=== PATIENT | male | born 1960 | race Hispanic/Latino ===

== ENCOUNTER → 2018-06-05 | Day surgery (SDC) | payer OTHER ==
--- NOTE | 2018-06-05 17:34 | Operative Report ---
Operative/Inv Procedure Report Surgery Date: 06/05/18 Name of Procedure: Endoscopic sinus surgery with 1. Middle meatal antrotomy with polypoid tissue removal, bilateral 2. Partial ethmoidectomy, bilateral 3. Nasoseptal reconstruction 4. Inferior turbinate outfracture and submucous resection, bilateral 5. Excision of deanna bullosa middle turbinate, left 6. Middle turbinate reduction, right Pre-Operative Diagnosis: 1. Chronic sinusitis, ethmoid and maxillary 2. Deviated nasal septum 3. Deanna bullosa middle turbinate, left 4. Inferior turbinate hypertrophy, bilateral 5. Middle turbinate hypertrophy, right Post-Operative Diagnosis: Same Estimated Blood Loss: less than 50ml Surgeon/Knowledge Engineer: Valorie BASS,Salome Gee Anesthesia: general endotracheal tube Drains: None Specimens: 1. Septum and turbinates 2. Sinus and middle turbinate, left 4. Sinus and middle turbinate, right Microbiology: None Complications: None Condition: Stable on leaving the OR Operative Indication: Difficulty breathing through the nose Recurrent sinusitis Facial pressure and headaches Operative/Procedure Note Note: The patient was brought to the operating room. Placed on the operating room table in supine position. At first timeout was performed identifying the patient, ID numbers and procedure to be performed. Next general oral endotracheal anesthesia was induced. Endotracheal tube was secured with tape over the last corner of the lip. Operating room table was rotated 90 to the left and patient was positioned for septal surgery with head slightly hyperextended and rotated to the right. At first vasoconstriction was carried by application of Afrin spray on cottonoid pledgets. Next nasal septum was injected with 1% lidocaine with 1: 100,000 epinephrine approximately 9 mL was injected on the right and another 6 mL on the left. This followed by placement of cotton pledgets saturated with cocaine solution and Afrin spray. Patient's face was then prepped and draped in routine manner and surgery was performed. A KISS sponge was placed into the nasopharynx for drainage secretions. A Hemitransfixion incision was placed on the right and right anterior mucoperichondrial tunnel was elevated followed by posterior mucoperiosteal tunnel. Bony cartilaginous junction was identified and and mucoperiosteal tunnel was elevated on the contralateral side. And anteriorly there was quadrangular cartilage prominence to the right adjacent to the maxillary crest as well as superiorly adjacent to perpendicular plate of the ethmoid. Posteriorly there was A significant vomerine protrusion with a spur to the right. At first quadrangular cartilage was shaved along the floor of the nose followed by chiseling of the maxillary crest. This relieved the inferior obstruction. Superiorly bony cartilaginous junction was and some of the quadrangular cartilage was shaved to relieve superior obstruction. Attention was paid to the vomerine bone. The bone was removed in a piecemeal manner followed by removal of the vomerine spurr. This relieved posterior obstruction. During removal of the spur also small fenestra was created in the posterior septum to serve as a drainage hole. Once the septoplasty was completed, prior to closure, left middle turbinate and middle meatus were injected with 3 cc of 1% lidocaine with 1:100,000 epinephrine. This followed by placement of cottonoid pledgets saturated with Afrin and cocaine. Septoplasty incision was closed with 5-0 chromic simple sutures. Followed by a mattress sutures with 5-0 chromic. Please note that the entire septoplasty was carried with 0 scope as well as directed visualization with a headlight. Upon closure of septoplasty incision injection was carried out on the right. Right middle turbinate and middle meatus were injected with 3 cc of 1% lidocaine with 1:100,000 epinephrine. This followed by placement of cottonoid pledgets saturated with Afrin and cocaine. Next endoscopic sinus surgery was carried out, first on the left and then on the right. The surgery was carried with direct visualization with 0 and 30 scopes. At first on the left, middle turbinate was reduced along its inferior border with Gruenwald forceps. The middle turbinate had deanna bullosa which was excised. Middle meatus was entered and partial ethmoidectomy was carried. The ethmoid air cells were removed with the straight and up turned to Narendra- Salas forceps. Ethmoid air cells were obstructed with polypoid mucosa. There was significant bony hyperostosis. Once ethmoidectomy was completed. Maxillary sinus ostium was explored. Uncinate process was partially removed with Setliff forceps. Curved ball seeker was used to probe for the natural maxillary sinus ostium. The ostium was then dilated with curved suction. Polypoid tissue was removed. Surgery was completed on the left. Next surgery was carried on the right. Again the middle turbinate was reduced along its inferior border with Gruenwald forceps. Middle turbinate was hypertrophied and obstructing middle meatus. The obstruction relieved by trimming the inferior most edge of the turbinate. Then partial ethmoidectomy was carried. Both bone and mucosa were removed. The mucosa was polypoid and bone was hyperostotic . Once ethmoidectomy was completed maxillary sinus ostium was searched for. Partial uncinectomy was carried with Setliff forceps. Curved ball seeker was used to search for the maxillary ostium. Ostium was dilated with a curved suction. Polypoid mucosa was removed. Sinus surgery was completed. Next inferior turbinates were then in and outfractured and excised in submucous manner. This was done with 0 scope visualization. Surgery was completed. Nasal packing was applied next. Gelfilm rolled up into a roll was placed into the middle meatus 2 pieces on each side, secured with 2-0 silk which was then taped to the cheeks with Steri-Strips. Nasal fossa was packed with Telfa saturated with Bactroban ointment. Telfa was stitched anteriorly with 2-0 silk to prevent posterior displacement. Next Helotene slurry was injectied into the nasal fossa, bilaterally to promote coagulation. Surgery was completed. The patient was reawakened, extubated and taken to the recovery room in good condition. There were no complications. Estimated blood was 30 mL. Findings: Septum deviated to the right anterior quadrangular septum and posterior vomerine bone Inferior turbinates hypertrophy Middle turbinates, the left with deanna bullosa Middle turbinate, right hypertrophy Discharge Disposition: PACU
== END ==
LOC: STS 03:09
DX: J34.2 Deviated nasal septum (principal); J34.3 Hypertrophy of nasal turbinates; J34.89 Other specified disorders of nose and nasal sinuses; J32.2 Chronic ethmoidal sinusitis; J32.0 Chronic maxillary sinusitis; R51 Headache; E11.9 Type 2 diabetes mellitus without complications; Z79.84 Long term (current) use of oral hypoglycemic drugs
CPT/HCPCS: J0131; J0690; J2250; J3490